=== PATIENT | female | born 1980 | race Caucasian/White ===

== ENCOUNTER 2018-07-07 15:09 | Emergency (ER) | payer OTHER, MEDICARE ==
[~2018-07-07] VITALS: Ht 165.1 cm; Wt 90.7 kg
[2018-07-07 15:30] VITALS: BP 161/93
--- NOTE | 2018-07-07 15:44 | Emergency Room Report ---
History of Present Illness General Chief Complaint: Pain Source: Patient Present Illness HPI 38-year-old female presents to the emergency department complaining of 10 out of 10 in severity pain to the left side of her face stating that she is having a breakthrough pain episode of her trigeminal neuralgia. Patient presents a note written on prescription paper but stated that back in May stating that the patient is under the care of a neurologist and for breakthrough pain suggested 4 mg of Dilaudid and 25 mg of Phenergan. Patient reports some photophobia she also reports history of migraines on the left side. Patient states that her symptoms are similar to previous exacerbations of her chronic condition that she has experienced in the past. Patient states that she has undergone multiple treatment regimens as well as surgeries in an attempt to relieve her symptoms and that she is now having to consider a morphine pump. Denies fevers or chills, rashes, or trauma to the head. Denies sudden onset headache. Pt. denies , urinary frequency/dysuria or hematuria, denies neck pain or stiffness. Denies fevers or chills. Reports chronic pain management Dr. knight at [facility] and Neurologist who wrote suggestion for 4mg dilaudid is Tai segura. Allergies: Coded Allergies: BUTORPHANOL (Verified Allergy, Unknown, 07/07/18) Uncoded Allergies: NUBAIN (Allergy, Unknown, 07/07/18) Patient History Past Medical History: see triage record Past Surgical History: none Pertinent Family History: none Last Menstrual Period: 3 weeks ago Now: No Reviewed Nursing Documentation: PMH: Agreed; PSxH: Agreed Review of Systems All Other Systems: negative except mentioned in HPI Physical Exam Vital Signs Date Time Temp Pulse Resp B/P (MAP) Pulse Ox O2 Delivery O2 Flow Rate FiO2 07/07/18 15:16 97.6 98 20 155/94 96 Room Air 97.5 Sp02 EP Interpretation: reviewed, normal General Appearance: alert, GCS 15, non-toxic, mild distress Head: normocephalic, atraumatic Eyes: bilateral eye normal inspection, bilateral eye PERRL - pupils are dilated in appearance ENT: hearing grossly normal, normal voice, TMs + canals normal Neck: full range of motion, no meningismus, no bony tend Respiratory: chest non-tender, lungs clear, normal breath sounds, speaking full sentences - Pt. very talkative Cardiovascular #1: regular rate, rhythm Musculoskeletal: back normal, gait/station normal, normal range of motion, non- tender Neurologic: alert, oriented x3, responsive, motor strength/tone normal, sensory intact, normal gait, speech normal, other - no facial droop, or pronator drift, equal metal ceiling hanger strength., grossly normal Psychiatric: judgement/insight normal Skin: normal color, no rash, warm/dry, well hydrated Medical Decision Making PA Attestation Dr. Hardin is my supervising physician whom pt. management has been discussed with. Diagnostic Impression: Primary Impression: Chronic pain Qualified Codes: G89.29 - Other chronic pain ER Course 38-year-old female presents to the emergency department complaining of 10 out of 10 in severity pain to the left side of her face stating that she is having a breakthrough pain episode of her trigeminal neuralgia. Patient presents a note written on prescription paper but stated that back in May stating that the patient is under the care of a neurologist and for breakthrough pain suggested 4 mg of Dilaudid and 25 mg of Phenergan. Patient reports some photophobia she also reports history of migraines on the left side. Patient states that her symptoms are similar to previous exacerbations of her chronic condition that she has experienced in the past. Patient states that she has undergone multiple treatment regimens as well as surgeries in an attempt to relieve her symptoms and that she is now having to consider a morphine pump. Denies fevers or chills, rashes, or trauma to the head. Denies sudden onset headache. Pt. denies , urinary frequency/dysuria or hematuria, denies neck pain or stiffness. Denies fevers or chills. Reports chronic pain management Dr. knight at [facility] and Neurologist who wrote suggestion for 4mg Dilaudid is Tai segura.. Ddx considered but are not limited to: drug seeking, OD, exacerbation of chronic pain condition, migraine, ICH just to name a few. Vital signs: are WNL, pt. is afebrile H&PE are most consistent with Exacerbation of chronic pain condition with very unusual requests for vacation therapy. no focal neurological deficits ORDERS: -I discussed with this patient that in the meantime I will order her a more standard dosage of medication and I will attempt to get a hold of either of her doctor's to develop an appropriate and quick outpatient follow-up planned. ED INTERVENTIONS: -1mg Dilaudid IM -25mg Phenergan PO Was able to get a hold of medical records tech for [place] doctor who is managing her for chronic pain who is a DDS. This patient apparently had an appointment today but did not show. Reports that the doctor did not tell her to come to the emergency department to receive 4 mg of Dilaudid. I was unable to get in contact with physician who wrote the above no on prescription paper with their information. The number kept Going to [facility]. I discussed this patient carefully with attending physician who did not feel that this patient required the suggested treatment regimen of 4 mg of Dilaudid and Phenergan. He agreed to 1mg Dilaudid IM and phenergan PO. On reevaluation patient states that her symptoms have improved somewhat but have not completely resolved. Discussed with patient that she will need to get in contact with her primary prescribing physicians and set up a plan for treatment during acute breakthrough pain. DISCHARGE: At this time pt. is stable for d/c to home. Will provide printed patient care instructions, and any necessary prescriptions. Care plan and follow up instructions have been discussed with the patient prior to discharge. Last Vital Signs Date Time Temp Pulse Resp B/P (MAP) Pulse Ox O2 Delivery O2 Flow Rate FiO2 07/07/18 15:30 97.9 94 16 161/93 98 Room Air 97.9 Disposition: HOME, SELF-CARE Condition: Stable Patient Instructions: Chronic Pain, Trigeminal Neuralgia Additional Instructions: Take any previously prescribed medications as directed. Follow up with a Primary Care Provider or your Chronic Pain Management Specialists within 3-5 days, even if your symptoms have resolved. Return sooner to ED if new symptoms occur, or current symptoms become worse. - Please note that this Emergency Department Report was dictated using [employer] foam kiss maker technology software, occasionally this can lead to erroneous entry secondary to interpretation by the dictation equipment. Wen Adorno Jul 07, 2018 15:44
[2018-07-07] MEDS ORDERED: HYDROmorphone 1mg/ml Carpuject IM ONE (16:15)
[2018-07-07] MEDS ORDERED: Promethazine 25mg tab ORAL ONE (16:15)
[2018-07-07 17:10] VITALS: BP 146/82
[2018-07-07 17:15] VITALS: BP 146/82
== END 2018-07-07 17:15 | disposition home or self-care (01) ==
LOC: EMR 16:22
DX: G89.29 Other chronic pain (principal); G50.0 Trigeminal neuralgia
CPT/HCPCS: 96372; 99283; J1170